=== PATIENT | male | born 1955 | race Caucasian/White ===

== ENCOUNTER → 2017-07-12 | Outpatient (REF) | payer OTHER ==
[~2017-07-12] MED LIST: ASPI81TA85 PO; CINN500C9 PO; GLUCTAB6 PO; MAGN250T7 PO; MICA80TA PO; MULTLIQ7 PO; PLANTAB PO; POTA80TA PO
[2017-07-12 13:27] LABS: ALBUMIN 3.9 GM/DL (3.2-5.2); ALBUMIN/GLOBULIN RATIO 1.11 (1.00-1.93); ALKALINE PHOSPHATASE 69 U/L (45-117); ALT/SGPT 35 U/L (12-78); ANION GAP 5 MEQ/L (8-16); AST/SGOT 22 U/L (7-37); BLOOD UREA NITROGEN 17 MG/DL (7-18); CALCIUM LEVEL 9.2 MG/DL (8.8-10.2); CARBON DIOXIDE LEVEL 28 MEQ/L (21-32); CHLORIDE LEVEL 105 MEQ/L (98-107); CHOLESTEROL LEVEL 134 MG/DL (<200); CREATININE FOR GFR 0.87 MG/DL (0.70-1.30); GLOMERULAR FILTRATION RATE > 60.0 (>49); GLUCOSE, FASTING 103 MG/DL (80-110); POTASSIUM SERUM 4.9 MEQ/L (3.5-5.1); SODIUM LEVEL 138 MEQ/L (136-145); TOTAL PROTEIN 7.4 GM/DL (6.4-8.2); TRIGLYCERIDES LEVEL 81 MG/DL (<150)
== END ==
LOC: M SFHCADAM 07:44
PROVIDERS: ATTEND Physician Assistant
DX: E78.4 Other hyperlipidemia (principal)

== ENCOUNTER → 2017-08-18 | Outpatient (REF) | payer OTHER | LOC: M SFHCLERA 11:45 | DX: L82.0 Inflamed seborrheic keratosis (principal) ==

== ENCOUNTER → 2018-07-21 | Outpatient (REF) | payer OTHER ==
[2018-07-21 19:52] LABS: HEMATOCRIT 49.9 % (42.0-52.0); HEMOGLOBIN 16.8 g/dl (13.5-17.5); MEAN CORPUSCULAR HEMOGLOBIN 29.5 pg (27.0-33.0); MEAN CORPUSCULAR HGB CONC 33.7 g/dl (32.0-36.5); MEAN CORPUSCULAR VOLUME 87.5 fl (80.0-96.0); PLATELET COUNT, AUTOMATED 199 10^3/uL (150-450)
[2018-07-21 19:54] LABS: ALBUMIN 4.3 GM/DL (3.2-5.2); ALT/SGPT 44 U/L (12-78); BILIRUBIN,TOTAL 0.8 MG/DL (0.2-1.0); BLOOD UREA NITROGEN 23 MG/DL (7-18); CALCIUM LEVEL 8.9 MG/DL (8.8-10.2); CARBON DIOXIDE LEVEL 27 MEQ/L (21-32); CHLORIDE LEVEL 102 MEQ/L (98-107); CHOLESTEROL LEVEL 165 MG/DL (<200); CHOLESTEROL RISK RATIO 2.796 (<5); GLOMERULAR FILTRATION RATE > 60.0 (>49); GLUCOSE, FASTING 84 MG/DL (70-100); HDL CHOLESTEROL 59 MG/DL (>40); LDL CHOLESTEROL 86 MG/DL (<100); NON-HDL-C 106 MG/DL; POTASSIUM SERUM 4.9 MEQ/L (3.5-5.1); SODIUM LEVEL 137 MEQ/L (136-145); TOTAL PROTEIN 7.7 GM/DL (6.4-8.2); TRIGLYCERIDES LEVEL 102 MG/DL (<150)
[2018-07-21 20:12] LABS: MAU/CREAT RATIO 9.4 MCG/MG (0.0-30.0)
== END ==
LOC: M SFHCADAM 11:49
PROVIDERS: ATTEND Physician Assistant
DX: I10 Essential (primary) hypertension (principal); E78.49 Other hyperlipidemia

== ENCOUNTER → 2018-12-16 | Outpatient (CLI) | payer OTHER ==
--- NOTE | 2018-12-16 10:31 | REP ---
Clinical: Lower back pain. Technique: AP, lateral, coned-down views of the lumbosacral spine. Findings: Alignment and lordosis maintained. No acute fracture / compression injury or subluxation. Moderate/advanced multilevel degenerative changes include endplate sclerosis, osteophytosis, and hypertrophic facet changes along with disc space narrowing. Findings most pronounced at the L5-S1, L4-5, and L3-4. Impression: Moderate/advanced multilevel degenerative spondylosis. Electronically Signed by Sly Gibson MD 12/16/2018 10:22 A
== END ==
LOC: M ADAMS 10:08
PROVIDERS: ATTEND Family Medicine
DX: M25.78 Osteophyte, vertebrae (principal); M51.36 Other intervertebral disc degeneration, lumbar region; M51.37 Other intervertebral disc degeneration, lumbosacral region

== ENCOUNTER → 2018-12-16 | Outpatient (REF) | payer OTHER ==
[2018-12-16 12:43] LABS: HEMATOCRIT 47.4 % (42.0-52.0); HEMOGLOBIN 15.9 g/dl (13.5-17.5); MEAN CORPUSCULAR HEMOGLOBIN 29.9 pg (27.0-33.0); MEAN CORPUSCULAR HGB CONC 33.5 g/dl (32.0-36.5); MEAN CORPUSCULAR VOLUME 89.1 fl (80.0-96.0); PLATELET COUNT, AUTOMATED 196 10^3/uL (150-450); RED BLOOD COUNT 5.32 10^6/uL (4.30-6.10); WHITE BLOOD COUNT 5.7 10^3/uL (4.0-10.0)
[2018-12-16 12:54] LABS: ALBUMIN 4.5 GM/DL (3.2-5.2); ALT/SGPT 34 U/L (12-78); BILIRUBIN,TOTAL 0.8 MG/DL (0.2-1.0); BLOOD UREA NITROGEN 19 MG/DL (7-18); CALCIUM LEVEL 9.2 MG/DL (8.8-10.2); CARBON DIOXIDE LEVEL 29 MEQ/L (21-32); CHLORIDE LEVEL 106 MEQ/L (98-107); GLOMERULAR FILTRATION RATE > 60.0 (>49); GLUCOSE, FASTING 93 MG/DL (70-100); NT-PRO BNP 71 PG/ML (<125); SODIUM LEVEL 139 MEQ/L (136-145)
== END ==
LOC: M SFHCADAM 10:04
PROVIDERS: ATTEND Family Medicine
DX: R60.0 Localized edema (principal)

== ENCOUNTER → 2019-04-17 | Outpatient (CLI) | payer OTHER ==
--- NOTE | 2019-04-17 17:42 | REP ---
Right lower extremity arterial duplex ultrasound: Brachial artery peak systole: 170 mmHg. Dorsalis pedis peak systole: 150 mmHg. HOSPITALITY SERVICES MANAGER peak systole: 260 mmHg. High D A 1.52. Peak Systolic Phasicity Velocity [employer] SUPER[employer] 100.5 triphasic Profunda 86.0 triphasic SFA prox 107.7 triphasic SFA mid 74.0 triphasic SFA dist 49 point triphasic Pop 56.0 triphasic DINA prox 42.2 biphasic Tib/P tr 72.0 triphasic HOSPITALITY SERVICES MANAGER pr 75.0 triphasic HOSPITALITY SERVICES MANAGER dst nine 87 monophasic DINA dst 106 monophasic There is mild atheromatous plaque throughout the right lower extremity slightly greater in the calf and ankle vessels. No significant stenoses are identified. Electronically Signed by Nnamdi Penny MD 04/17/2019 05:33 P
== END ==
LOC: M RAD 12:58
PROVIDERS: ATTEND Family Medicine
DX: M79.604 Pain in right leg (principal)

== ENCOUNTER → 2023-12-23 | Outpatient (CLI) | payer MEDICARE, OTHER ==
[~2023-12-23] MED LIST changes: -ASPI81TA85 PO; +ASPI81TA86 PO; +ATOR1TAB21 PO; -GLUCTAB6 PO; +GLUCTAB7 PO; +HYDR25TA87 PO; +MICA40TA PO; +OMEP-173 PO
== END ==
LOC: M EKG 08:38
PROVIDERS: ATTEND Anesthesiology
DX: Z01.818 Encounter for other preprocedural examination (principal); R03.0 Elevated blood-pressure reading, without diagnosis of hypertension; E78.00 Pure hypercholesterolemia, unspecified; R00.1 Bradycardia, unspecified; R94.31 Abnormal electrocardiogram [ECG] [EKG]

== ENCOUNTER 2023-12-31 05:53 | Day surgery (SDC) | payer MEDICARE, OTHER ==
[~2023-12-31] VITALS: Ht 177.8 cm; Wt 97.8 kg
[2023-12-31] MEDS ORDERED: LR 1,000 ML IV SCH (06:25)
[2023-12-31] MEDS ORDERED: ROCURONIUM BROMIDE 50MG/5ML VIAL As Ordered ONE (07:18)
[2023-12-31] MEDS ORDERED: ONDANSETRON 4MG 2ML VIAL As Ordered ONE (07:19)
[2023-12-31] MEDS ORDERED: LIDOCAINE 2% 100MG/5ML SDV (FOR ANES.) As Ordered ONE (07:19)
[2023-12-31] MEDS ORDERED: MIDAZOLAM INJ 2MG/2ML VIAL As Ordered ONE (07:19)
[2023-12-31] MEDS ORDERED: fentaNYL 250 MCG/5 ML INJECTION As Ordered ONE (07:19)
[2023-12-31] MEDS ORDERED: propofoL 200 MG/20 ML VIAL As Ordered ONE (07:19)
[2023-12-31] MEDS ORDERED: dexmedeTOMIDine (4MCG/ML)200MCG/50ML BTL (PRECEDEX) As Ordered ONE (07:19)
[2023-12-31] MEDS: ceFAZolin SOD 2 GM in IV 1 EA IV ONE (07:49)
[2023-12-31] MEDS ORDERED: SUGAMMADEX SODIUM 500 MG/5 ML VIAL (BRIDION) As Ordered ONE (07:56)
[2023-12-31] MEDS ORDERED: ACETAMINOPHEN 1000MG 100ML IV BAG As Ordered ONE (07:56)
[2023-12-31] MEDS ORDERED: KETOROLAC 60MG 2ML VIAL As Ordered ONE (07:56)
[2023-12-31] MEDS ORDERED: GLYCOPYRROLATE INJ 0.2 MG/ML 2 ML VIAL As Ordered ONE (07:59)
[2023-12-31] MEDS ORDERED: MORPHINE 2 MG/ML 1ML VIAL IV PRN (08:55)
[2023-12-31] MEDS: ONDANSETRON 4MG 2ML VIAL IV PRN (09:19)
[2023-12-31] MEDS: fentaNYL 100 MCG/2 ML INJECTION IV PRN (09:20)
[2023-12-31] MEDS: oxyCODONE 5MG TAB PO PRN (09:21)
[2023-12-31] MEDS ORDERED: NORCO, ANEXSIA 5/325MG TABLET (HYDROcodone/ACETAMINOPHEN) PO PRN (09:25)
[2023-12-31 10:31] VITALS: BP 139/74; TEMP 97.6; O2SAT 97
== END 2023-12-31 10:46 | disposition home or self-care (01) ==
LOC: M SDC 05:53
PROVIDERS: ATTEND Surgery
DX: K42.0 Umbilical hernia with obstruction, without gangrene (principal); R06.83 Snoring; Z79.899 Other long term (current) drug therapy
CPT/HCPCS: 49594; C1781; J0131; J0665; J0690; J1100; J1885; J2250; J2405; J3010; S2900